=== PATIENT | male | born 1990 | race Caucasian/White ===

== ENCOUNTER 2016-08-03 16:21 | Emergency (ER) | payer OTHER ==
[~2016-08-03] VITALS: Ht 172.7 cm; Wt 82.7 kg
[2016-08-03 17:33] VITALS: BP 124/85
== END 2016-08-03 19:16 | disposition home or self-care (01) ==
LOC: ED 16:21
DX: S51.811A Laceration without foreign body of right forearm, initial encounter (principal); W54.0XXA Bitten by dog, initial encounter; Y93.89 Activity, other specified; Y99.8 Other external cause status; Y92.89 Other specified places as the place of occurrence of the external cause
CPT/HCPCS: 90715

== ENCOUNTER 2016-08-04 19:33 | Emergency (ER) | payer OTHER ==
[2016-08-04 19:35] VITALS: BP 141/92
== END 2016-08-04 20:41 | disposition home or self-care (01) ==
LOC: ED 19:33
DX: S51.851A Open bite of right forearm, initial encounter (principal); W54.0XXA Bitten by dog, initial encounter; Y93.89 Activity, other specified; Y99.8 Other external cause status; Y92.89 Other specified places as the place of occurrence of the external cause